=== PATIENT | male | born 1950 | race African-American/Black ===

== ENCOUNTER 2018-03-19 15:57 | Emergency (ER) | payer BC, MEDICARE ==
[2018-03-19] MEDS ORDERED: Ketorolac Tromethamine 30 MG/ML VIAL ONE (16:25)
[2018-03-19 16:38] LABS: Bilirubin Negative (Negative); Blood, Urine Negative (Negative); Clarity Clear (Clear); Glucose, Urine (Dipstick) Negative (Negative); Leukocyte Negative (Negative); Nitrite Negative (Negative); Protein, Urine (Dipstick) Negative (Neg-Trace); Urobilinogen 0.2 mg/dL (0.2-1.0)
[2018-03-19 16:39] LABS: Specific Gravity, Urine 1.025 (1.002-1.036)
--- NOTE | 2018-03-19 20:06 | CT ---
NONCONTRAST CT ABDOMEN AND PELVIS: Date: 03-19-18 History: Right flank pain. Comparison: None available. FINDINGS: Lung bases are clear. The lungs bases, liver, spleen, pancreas, bilateral adrenal glands, kidneys, and decompressed urinary bladder demonstrate a grossly normal nonenhanced CT appearance. No renal or ureteral calculi are see n bilaterally and there is no evidence of hydronephrosis. There is a low density focus seen within th e region of the head of the pancreas which demonstrates attenuation most likely related fat. The appendix is visualized and filled with gas without CT evidence of appendicitis. Vascular calcifications are seen in the abdominal aorta and involve the iliac arteries but there is n o aneurysmal dilatation of the abdominal aorta. Prostate gland is enlarged in transverse dimensions measuring 6 cm. No lytic or sclerotic osseous lesions are visualized. No free fluid, fluid collection, or lymphadenopathy is seen in the abdomen or pelvis. IMPRESSION: 1. No acute findings are seen in the abdomen or pelvis on this nonenhanced CT exam. 2. No renal or ureteral calculi are seen bilaterally. 3. No CT evidence of appendicitis. 4. Vascular calcifications in the abdominal aorta without aneurysmal dilatation. 5. Enlargement of the prostate gland. POS: [facility]
== END 2018-03-19 17:28 | disposition home or self-care (01) ==
LOC: NAV ERS 15:57
DX: M54.5 Low back pain (principal)
CPT/HCPCS: 74176; 81003; 96372; J1885

== ENCOUNTER 2018-05-07 08:24 | Emergency (ER) | payer MEDICARE | END 2018-05-07 09:52 | disposition home or self-care (01) | LOC: NAV ERS 08:24 | DX: B35.6 Tinea cruris (principal); I10 Essential (primary) hypertension; Z79.899 Other long term (current) drug therapy | CPT/HCPCS: 99282 ==

== ENCOUNTER 2023-08-01 14:28 | Emergency (ER) | payer MEDICARE, OTHER ==
[2023-08-01] MEDS ORDERED: Ibuprofen 200 MG TAB ONE (16:50)
== END 2023-08-01 16:51 | disposition home or self-care (01) ==
LOC: NAV ERS 14:28
DX: S43.401A Unspecified sprain of right shoulder joint, initial encounter (principal); S16.1XXA Strain of muscle, fascia and tendon at neck level, initial encounter; V69.9XXA Occupant (driver) (passenger) of heavy transport vehicle injured in unspecified traffic accident, initial encounter
CPT/HCPCS: 72125

== ENCOUNTER 2025-04-18 09:15 | Emergency (ER) | payer MEDICARE ==
[2025-04-18] MEDS ORDERED: Acetaminophen 500 MG TAB ONE (09:37)
== END 2025-04-18 10:00 | disposition home or self-care (01) ==
LOC: NAV ERS 09:15
DX: S40.011A Contusion of right shoulder, initial encounter (principal); R03.0 Elevated blood-pressure reading, without diagnosis of hypertension; V89.2XXA Person injured in unspecified motor-vehicle accident, traffic, initial encounter; Y92.488 Other paved roadways as the place of occurrence of the external cause
CPT/HCPCS: 99283